=== PATIENT | male | born 1985 | race Caucasian/White ===

== ENCOUNTER 2020-04-22 20:35 | Emergency (ER) | payer OTHER ==
[~2020-04-22] VITALS: Ht 180.3 cm; Wt 116.1 kg
[2020-04-22] MEDS ORDERED: [UNRECOGNIZED DRUG - OTHER] (20:43)
[2020-04-22] MEDS ORDERED: OMEGA 3 1,0001 EACH (20:43)
[2020-04-22] MEDS ORDERED: ZINC SULFATE220 MG PO (20:43)
[2020-04-22] MEDS ORDERED: KEFLEX500 M1 PO (21:44)
[2020-04-22 23:15] VITALS: BP 168/70
== END 2020-04-22 22:30 | disposition home or self-care (01) ==
LOC: ER 20:35
DX: S93.111A Dislocation of interphalangeal joint of right great toe, initial encounter (principal); S91.112A Laceration without foreign body of left great toe without damage to nail, initial encounter; Z98.890 Other specified postprocedural states; Z79.899 Other long term (current) drug therapy; W18.09XA Striking against other object with subsequent fall, initial encounter; Y93.02 Activity, running; Y92.89 Other specified places as the place of occurrence of the external cause; Y99.9 Unspecified external cause status